=== PATIENT | male | born 1950 | race African-American/Black ===

== ENCOUNTER 2018-02-05 14:06 | Inpatient (IN) | payer OTHER ==
[~2018-02-05] VITALS: Ht 180.3 cm; Wt 63.6 kg
--- NOTE | ~2018-02-05 | HC ---
[facility] [place] [address] CONSULTATION Name: ARPITA PHILIPPE Room #: 362-P [facility]..#: [id number] Admission: 02/05/18 Attend Phys: Song Navas MD Discharge: 02/09/18 Date of : 50 Report #: [id number] THIS REPORT FOR: //name// CC: Pippa Navas DATE OF SERVICE: 02/09/2018 NEPHROLOGY CONSULTATION REASON FOR CONSULTATION: Chronic kidney disease. HISTORY OF PRESENT ILLNESS: The patient is well known to our service, followed in our office with CKD by Dr. Virginia Abdullahi. He has a fistula in the left upper arm, but has not required dialysis and that fistula has been in for at least a couple of years. His chronic baseline creatinine apparently runs between 3 and 4. He was admitted here after some falls, with a creatinine of 4.6 and has fallen to 3.1 over the course of several days of hospitalization. He fell and was found down, had some rhabdomyolysis, which is improving and his creatinine, as mentioned, improving as well. PAST MEDICAL HISTORY: The patient, as I mentioned, is well known to our service and we have seen him previously in the hospital here with CKD, most recently about 3 years ago, but he is followed regularly in our office. He does have polycystic kidneys, but it is unclear as to whether he has autosomal dominant polycystic kidney disease. He did have a sister who was on dialysis and probably that is the case; family history is remarkable for that. Past history also remarkable for previous CVA and hypertension. SOCIAL HISTORY: , lives by himself. MEDICATIONS: Home medications, as listed, include amlodipine 10 mg daily, aspirin 81 mg daily, B12 and Toprol-XL 50 mg daily. REVIEW OF SYSTEMS: GENERAL: He is sitting up in the rehab floor and feeling much better. In general, he has been feeling okay. EYES: His vision is reasonably good. ENT: Hearing okay and swallows okay. Denies mouth sores. ENDOCRINE: No diabetes or thyroid disease. RESPIRATORY: Denies shortness of breath, pleuritic pain or cough. CARDIAC: Denies chest pain, angina or palpitations. GASTROINTESTINAL: Denies nausea, vomiting, diarrhea or bloody stools. GENITOURINARY: Has a good urinary stream, without hematuria or history of renal stone. NEUROLOGIC: He has had a previous stroke and claims no residual. [address] [place] [address] CONSULTATION Name: ARPITA PHILIPPE Room #: 362-P [facility] IN [facility]#: [id number] Admission: 02/05/18 Attend Phys: Song Navas MD Discharge: 02/09/18 Date of : 50 Report #: [id number] PHYSICAL EXAMINATION: GENERAL: Chronically cachectic, ill-appearing gentleman, in no acute distress, giving some history. SKIN: Unremarkable. SKELETAL: Rather thin. Left upper arm fistula. HEENT: Extraocular movements are full. Vision intact. No scleral icterus. Hearing intact. Mucous membranes moist. Tongue, buccal mucosa benign. NECK: Supple. No carotid bruits. CHEST: Clear to auscultation. HEART: Regular. ABDOMEN: Soft, nontender. EXTREMITIES: No edema. LABORATORY DATA: Most recent hemoglobin 10.4. Sodium 142, potassium 3.8, chloride 112, bicarbonate 17, creatinine 3.1 and BUN 33. ASSESSMENT AND PLAN: 1. Chronic kidney disease. His creatinine is not terribly high as is his BUN, but I feel his muscle mass is probably rather well and his GFR is probably on the low side, as he did have a chronic creatinine greater than 4 at one time when there was more bulk to him. In any event, he has been kept off dialysis this long and seems to be doing pretty well. His renal function is relatively stable. He does have a bit of metabolic acidosis and that may need to be treated. I will review his office records when I get to the office. 2. Status post fall, with rhabdomyolysis, getting better. 3. History of hypertension, on medications. <ELECTRONICALLY SIGNED> By: Brian Keene MD 02/13/18 0959 1147 2352 Brian Keene MD /nt
--- NOTE | ~2018-02-05 | HC ---
[facility] [place] [address] CONSULTATION Name: ARPITA PHILIPPE Room #: 362-P ADM IN .R.#: [id number] Admission: 02/05/18 Attend Phys: Song Navas MD Discharge: Date of : 50 Report #: [id number] THIS REPORT FOR: //name// CC: Pippa Navas DATE OF SERVICE: 02/06/2018 CHIEF COMPLAINT: Multiple pressure ulcerations after prolonged downtime. HISTORY OF PRESENT ILLNESS: This is a 67-year-old black male patient who apparently was found down on the floor at home. He laid on the floor for possibly up to 4 days. He was found by family members, brought to the hospital. He has been fluid resuscitated and is feeling a little bit better, although offers very little information about himself. He complains of some soreness to his chest wall and is noted to have several areas of pressure injury to his face, chest, and knees. PAST MEDICAL PROBLEMS: Include altered mental status, acute renal failure, history of incarcerated hernia, rhabdomyolysis, weakness, and chronic kidney disease with possible history of dialysis. SOCIAL HISTORY: Negative for alcohol or tobacco use. MEDICATIONS: Include aspirin, atorvastatin, Topral XL, vitamin B12, amlodipine, Colace. ALLERGIES: No known drug allergies. FAMILY HISTORY: Noncontributory. REVIEW OF SYSTEMS: Essentially unobtainable due to either the patient's inability to answer questions or unwillingness to answer questions. PHYSICAL EXAMINATION: VITAL SIGNS: At this time include pulse 96, respiratory rate of 18, blood pressure 164/93, and temperature 98.1. GENERAL: This is a chronically ill-appearing male patient who appears to be somewhat cachectic, in no distress. HEENT: Head is normocephalic and atraumatic. Extraocular movements are intact. Nose is clear. There is an area of what appears to be superficial eschar to the right zygomatic arch region. There is no separation or anything open in this location. NECK: Supple. LUNGS: Clear. HEART: Regular rhythm. [facility] [address] [place] [address] CONSULTATION Name: ARPITA PHILIPPE Room #: 362-P [facility] IN .R.#: [id number] Admission: 02/05/18 Attend Phys: Song Navas MD Discharge: Date of : 50 Report #: [id number] CHEST: Chest wall is tender. SKIN: He has areas of eschar over his xiphoid process. The eschar is slightly raised at the edges, but does not appear to be infected. He has evidence of pressure injury to both knees. These areas seem to have recovered. There is no eschar and actually appears to be re-epithelialized. There is a small of eschar in his right first MTP region. CLINICAL IMPRESSION: 1. Unstageable pressure ulcers to the right zygomatic arch region, xiphoid process region, bilateral knees, right first MTP. 2. Mild rhabdomyolysis. 3. Acute mental status changes. 4. Chronic kidney disease. RECOMMENDATIONS: At this point in time, all eschared areas are stable and non-infected. At this point in time, I think it would be reasonable to use topical skin prep to these areas and to otherwise leave them open to air. The eschar should release and peel away as epithelialization occurs. The patient is agreeable to this plan as well. We will recommend aggressive nutritional support. We will recommend turning and repositioning as needed while he is in bed. Continue current medications. I appreciate being asked to see him in consultation. <ELECTRONICALLY SIGNED> By: Roberto Carlos Villaseñor MD 02/07/182152 35 37 Roberto Carlos Villaseñor MD /nt
--- NOTE | ~2018-02-05 | EKG ---
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1950 Requested By: Dada Cochran Order Number: [id number] MD: Juni Thomas Measurements Intervals [place] Rate: 98 P: 60 WA: 168 QRS: -55 QRSD: 135 T: -56 QT: 370 QTc: 473 Interpretive Statements Sinus rhythm Right bundle branch block Nonspecific ST and T wave abnormality Compared to ECG 02/16/2016 13:01:45 Nonspecific change in the ST and T-wave segments Electronically Signed On 02-06-2018 8:47:40 MEDICAL BILLING AND CODING INSTRUCTOR by Juni Thomas [email or web address] <ELECTRONICALLY SIGNED> By: Juni Thomas MD, [facility] 02/06/18 0847 1430 1430 Juni Thomas MD, [facility] /EPI
[~2018-02-05 14:06] MED LIST: AMLODIPINE BESY10 MG PO; ASPIR 8181 MG PO; BENZONATATE100 MG PO; CARDURA4 MG PO; COLACE100 MG PO; HYDROCODONE-AP1 EAC6 PO; LIPITOR 20 MG T20 M1 PO; LOPRESSOR50 MG PO; MIRALAX17 GM PO; PERCOCET 10-321 EACH PO; VITAMIN B-121000 MCG PO
[2018-02-05 14:07] VITALS: BP 161/63
[2018-02-05 15:46] LABS: HEMATOCRIT 40.4 % (42.0-52.0); HEMOGLOBIN 13.4 gm/dL (14.0-18.0); MCH 30.9 pg (26.0-34.0); MCHC 33.2 g/dL (28.0-37.0); MCV 92.9 fL (80.0-100.0); PLATELET COUNT 148 thou/uL (150-400); RBC 4.35 mil/uL (4.50-6.00); RDW 12.9 % (10.5-14.5)
[2018-02-05 15:55] LABS: CALCIUM 8.9 mg/dL (8.5-10.1); CREATININE 4.6 mg/dL (0.7-1.3)
[2018-02-05 16:47] LABS: ABSOLUTE NEUTROPHILS 3.7 thou/uL (1.4-8.2); ANISOCYTOSIS 1+
[2018-02-05 17:43] VITALS: BP 175/89
[2018-02-05 18:23] VITALS: BP 175/89
[2018-02-05 18:30] VITALS: BP 169/97
[2018-02-05] MEDS ORDERED: TOPROL XL50 MG PO (21:28)
[2018-02-05 23:37] VITALS: BP 137/75
[2018-02-06 04:00] VITALS: BP 163/72
[2018-02-06 05:14] LABS: URINE BILIRUBIN NEGATIVE (Negative); URINE BLOOD 3+ (Negative); URINE CLARITY CLEAR; URINE COLOR YELLOW; URINE GLUCOSE-RANDOM* NEGATIVE (Negative); URINE KETONES NEGATIVE (Negative); URINE LEUKOCYTES-REFLEX NEGATIVE (Negative); URINE NITRITE-REFLEX NEGATIVE (Negative); URINE PROTEIN (DIPSTICK) 2+ (Negative); URINE SPECIFIC GRAVITY 1.025 (1.005-1.035); URINE UROBILINOGEN 0.2 E.U./dl (0.2-1.0)
[2018-02-06 05:25] LABS: MUCUS 0-3 Light strn/LPF (None Seen); SQUAMOUS 0-3 Few /LPF (0-3)
[2018-02-06 05:26] LABS: CASTS None Seen /LPF (None Seen); URINE RBC 3-10 Few /HPF (0-2); URINE WBC-REFLEX None Seen /HPF (0-5)
[2018-02-06 05:27] LABS: BACTERIA-REFLEX None Seen /HPF (None Seen); CRYSTALS None Seen /LPF (None Seen)
[2018-02-06 06:34] LABS: HEMOGLOBIN 11.9 gm/dL (14.0-18.0); MCV 93.9 fL (80.0-100.0); RBC 3.84 mil/uL (4.50-6.00); RDW 13.2 % (10.5-14.5); WBC 6.1 thou/uL (4.0-11.0)
[2018-02-06 07:09] LABS: ALBUMIN 3.3 g/dL (3.4-5.0); CALCIUM 8.5 mg/dL (8.5-10.1); CREATININE 4.4 mg/dL (0.7-1.3); POTASSIUM 4.6 mmol/L (3.5-5.1); TOTAL BILIRUBIN 0.8 mg/dL (<0.1-1.0); TOTAL PROTEIN 7.3 g/dL (6.4-8.2)
[2018-02-06 08:07] VITALS: BP 164/93
[2018-02-06 11:53] VITALS: BP 155/87
[2018-02-06 20:00] VITALS: BP 136/69
[2018-02-07 04:00] VITALS: BP 138/57
[2018-02-07 06:27] LABS: ABSOLUTE NEUTROPHILS 3.3 thou/uL (1.4-8.2); BASOPHILS 0.7 % (0.0-2.0); EOSINOPHILS 0.2 % (0.0-3.0); HEMATOCRIT 30.8 % (42.0-52.0); MCH 30.4 pg (26.0-34.0); MCHC 32.5 g/dL (28.0-37.0); MCV 93.4 fL (80.0-100.0); MONOCYTES 10.2 % (1.0-8.0); PLATELET COUNT 109 thou/uL (150-400); POLYS 60.9 % (36.0-66.0); RDW 12.7 % (10.5-14.5); WBC 5.5 thou/uL (4.0-11.0)
[2018-02-07 06:40] LABS: CALCIUM 7.6 mg/dL (8.5-10.1); CREATININE 3.9 mg/dL (0.7-1.3); POTASSIUM 4.2 mmol/L (3.5-5.1)
[2018-02-07 08:19] VITALS: BP 127/70
[2018-02-07 11:49] VITALS: BP 133/70
[2018-02-07 16:36] VITALS: BP 128/72
[2018-02-07 20:20] VITALS: BP 126/60
[2018-02-08 04:45] VITALS: BP 128/70
[2018-02-08 06:51] LABS: CREATININE 3.6 mg/dL (0.7-1.3); POTASSIUM 4.2 mmol/L (3.5-5.1)
[2018-02-08 07:44] VITALS: BP 143/83
[2018-02-08 11:41] VITALS: BP 147/85
[2018-02-08 15:40] VITALS: BP 148/77
[2018-02-08 20:28] VITALS: BP 149/83
[2018-02-09 03:36] VITALS: BP 157/90
[2018-02-09 06:23] LABS: HEMATOCRIT 32.4 % (42.0-52.0); HEMOGLOBIN 10.4 gm/dL (14.0-18.0); MCH 29.8 pg (26.0-34.0); MCHC 32.1 g/dL (28.0-37.0); MCV 92.9 fL (80.0-100.0); RBC 3.49 mil/uL (4.50-6.00); RDW 13.2 % (10.5-14.5); WBC 4.4 thou/uL (4.0-11.0)
[2018-02-09 06:39] LABS: CALCIUM 7.9 mg/dL (8.5-10.1); CREATININE 3.2 mg/dL (0.7-1.3); MAGNESIUM 1.8 mg/dL (1.8-2.4); POTASSIUM 3.8 mmol/L (3.5-5.1)
[2018-02-09 07:37] VITALS: BP 148/88
[2018-02-09 12:18] VITALS: BP 138/79
[2018-02-09] MEDS ORDERED: ASPIR 8181 MG PO (12:49)
[2018-02-09] MEDS ORDERED: ADULT TUSS100 MG/5 M PO (12:49)
[2018-02-09] MEDS ORDERED: ACETAMINOPHEN325 M1 PO (12:49)
[2018-02-09 14:23] VITALS: BP 160/85
== END 2018-02-09 18:05 | DRG 564 ==
LOC: ER 14:06 → 3W 16:50 → EROBS 16:50 → 3W 18:06
PROVIDERS: Family Medicine; Internal Medicine; Nurse Practitioner Family; Physician Assistant
DX: T79.6XXA Traumatic ischemia of muscle, initial encounter (principal); N18.6 End stage renal disease; G92 Toxic encephalopathy; E44.0 Moderate protein-calorie malnutrition; Z68.1 Body mass index [BMI] 19.9 or less, adult; I12.0 Hypertensive chronic kidney disease with stage 5 chronic kidney disease or end stage renal disease; L89.810 Pressure ulcer of head, unstageable; L89.890 Pressure ulcer of other site, unstageable; Z60.2 Problems related to living alone; R29.6 Repeated falls; E53.8 Deficiency of other specified B group vitamins; L98.8 Other specified disorders of the skin and subcutaneous tissue; S20.319A Abrasion of unspecified front wall of thorax, initial encounter; S90.811A Abrasion, right foot, initial encounter; W18.39XA Other fall on same level, initial encounter; Y93.89 Activity, other specified; Y92.89 Other specified places as the place of occurrence of the external cause; Y99.8 Other external cause status; Z98.52 Vasectomy status; Z86.73 Personal history of transient ischemic attack (TIA), and cerebral infarction without residual deficits; Z79.899 Other long term (current) drug therapy; Z99.2 Dependence on renal dialysis
CPT/HCPCS: 10779; 10879

== ENCOUNTER 2018-02-09 09:05 | Inpatient (IN) | payer OTHER ==
[~2018-02-09] VITALS: Ht 180.3 cm; Wt 67.1 kg
--- NOTE | ~2018-02-09 | HC ---
[facility] [place] [address] CONSULTATION Name: ARPITA PHILIPPE Room #: 513-P ADM IN M.R.#: [id number] Admission: 02/09/18 Attend Phys: Angelo Khalil MD Discharge: Date of : 50 Report #: [id number] THIS REPORT FOR: //name// CC: Angelo Phillips DATE OF SERVICE: 02/11/2018 NEUROBEHAVIORAL STATUS EXAM: ATTENDING PHYSICIAN: Angelo Khalil MD. WILDLIFE REHABILITATOR: Elian Olguin, PhD. CLINICAL PRESENTATION: The patient is a 67-year-old male admitted to the [facility] Unit for comprehensive inpatient rehabilitation program. The patient was initially brought into the hospital following an incident in which he was found on the floor of his home face forward for approximately 3 days and was unable to stand. He was diagnosed with rhabdomyolysis and had an additional presentation that included his right eye swollen, multiple sores on his chest, knees and foot. The patient has been confused, and diagnosed with encephalopathy upon admission. His diagnosis on admission to the rehab unit includes acute metabolic encephalopathy, rhabdomyolysis, status post fall, multiple skin abrasions including chest wall, knees and foot, chronic kidney disease stage 5, history of CVA with left-sided weakness, protein-calorie malnutrition, folic acid deficiency, hypertension and a chronic cough. A complete description of his medical condition and history can be found in his medical record. Neuropsychological consultation was requested to provide assistance in the assessment of cognitive and emotional status and to provide recommendations and services. Prior to this recent medical event, he is reported to have been living independently in his own home. He is , but from his . The patient had 4 children. 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 TECHNIQUES UTILIZED: Clinical interview, review of medical records, staff consultation and behavioral observation, mini mental status exam 2 brief version and attempted contact with family (sister). EXAMINATION FINDINGS: The patient was interviewed while in his room. There is no report of auditory or visual hallucinations. However, the patient is confused. He was unaware of the reason for his hospitalization and was [facility] [address] [place] [address] CONSULTATION Name: ARPITA PHILIPPE Room #: 513-P ADM IN [facility].#: [id number] Admission: 02/09/18 Attend Phys: Angelo Khalil MD Discharge: Date of : 50 Report #: [id number] coughing frequently during the assessment. Verbal associations were tangential during the interview. He indicates appetite is poor. However, he is an unreliable historian in regard to presenting symptoms. His performance on the brief version of the MMSE 2 was 12/16, one which is extremely low. Moderate impairment in cognition is suggested by performance on the MMSE 2. The patient is alert and oriented; however, his level of alterness is variable. Impaired recall is noted along with poor insight into his symptoms and his limitations. It will be important to have increased contact with family to clarify recent history and functional levels of functioning prior to his hospitalization. DIAGNOSTIC IMPRESSION: Delirium, hypoactive, acute. Neurocognitive disorder -- extent to be determined, unspecified, with decreased insight and poor judgment. Unspecified anxiety disorder. RECOMMENDATIONS: Continued contact with family will be necessary to clarify his pre-morbid functioning regarding mood and behavior and cognitive deficits. At this time, 24-hour care is suggested with assistance in the management of medication, nutrition and finances. A structured schedule with an explanation during therapies regarding the purpose of his hospitalization. Redirection and distraction along with orientation will also help if patient becomes agitated. Thank you very much for allowing me to provide the consultation on this patient. <ELECTRONICALLY SIGNED> By: Elian Olguin, PhD 02/20/18 0714 1301 2125 Elian Olguin, PhD /nt
--- NOTE | ~2018-02-09 | P ---
[facility] [place] [address] PROCEDURE REPORT Name: ARPITA PHILIPPE Room #: 513-P ADM IN M.R.#: [id number] Admission: 02/09/18 Attend Phys: Angelo Khalil MD Discharge: Date of : 50 Report #: [id number] THIS REPORT FOR: //name// CC: Angelo Andersen DATE OF SERVICE: 02/15/2018 PROCEDURE: EGD with esophageal dilatation. He is a patient of Dr. Romel Phillips and Dr. Angelo Khalil. INDICATIONS FOR PROCEDURE: This patient has had dysphagia. He has symptomatic problems with his swallowing. EGD is being performed to try to evaluate the esophagus more thoroughly and possibly dilated, so that the swallowing will be easier for him. DESCRIPTION OF PROCEDURE: Informed consent for this procedure was obtained prior to the administration of any medication. The risks of the procedure, which include bleeding, perforation, infection, complications of sedation and the possibility I could miss something have been explained to the patient and he has indicated his consent by signing. Propofol was slowly titrated before and during this procedure for patient comfort by the Anesthesia service. The Olympus upper videoscope was introduced through the upper esophageal sphincter and advanced under direct visualization to the third portion of the duodenum. Findings are noted on withdrawal of the scope. There is bile throughout the duodenum. The third portion of the duodenum that was visualized appears normal. Second portion is normal in appearance and the duodenal bulb appears normal. In the pylorus, there is some mild erythema. In the prepyloric area, a few nonbleeding minor erosions. The rest of the antrum appears normal. Body, normal mucosa. Cardia and fundus, normal mucosa. Retroflex view did not reveal any hiatal hernia. The scope was withdrawn into the esophagus. The Z-line patient is appropriately located at the top of the gastric folds and appears normal. The esophageal mucosa appears normal throughout its entirety. It does feel like there is a narrowing of the proximal esophagus with regard to the way the scope travels through this area, but I could not see anything obvious. The scope was advanced down into the stomach. Again, a guidewire was advanced through the scope. The scope was withdrawn over the guidewire. Then, a #51-Icelandic Savary dilator was passed over the guidewire without difficulty. The guidewire and the dilator were removed. Then, the Olympus upper videoscope was reintroduced through the upper esophageal sphincter and advanced under direct visualization to the pylorus. Findings are noted on withdrawal of the scope. There were no changes in the stomach after [facility] [address] [place] [address] PROCEDURE REPORT Name: ARPITA PHILIPPE Room #: 513-P [facility] IN ..#: [id number] Admission: 02/09/18 Attend Phys: Angelo Khalil MD Discharge: Date of : 50 Report #: [id number] the dilatation. The scope was withdrawn to the esophagus. The distal esophagus appears normal. The esophageal mucosa appears normal and unchanged throughout its entirety up to the very proximal esophagus where there is a tiny bit of blood present. It may be that there was some dilatation of the proximal esophagus. In the process of passing this dilator through the esophagus. Hopefully, it will be helpful for his dysphagia. Good hemostasis is noted. The scope was withdrawn. The patient went to the recovery area in stable condition. He tolerated the procedure well. IMPRESSION: 1. Suspect tight upper esophagus that was dilated with a 51-Icelandic Savary over a guidewire. 2. Prepyloric erosions. RECOMMENDATIONS: For him to continue on PPIs or H2 receptor antagonist for the erosions that were seen in his stomach and advance his diet as recommended by speech therapy. Thank you very much once again for allowing me to participate in his care, Dr. Phillips and Dr. Khalil. <ELECTRONICALLY SIGNED> By: Cherise Rodriguez DO 02/15/18 1410 1331 1401 Cherise Rodriguez DO /nt
--- NOTE | ~2018-02-09 | PLAN ---
[facility] [place] [address] REHAB UNIT PLAN OF CARE Name: ARPITA PHILIPPE Room #: 513-P ADM IN M.R.#: [id number] Admission: 02/09/18 Attend Phys: Angelo Khalil MD Discharge: Date of : 50 Report #: [id number] THIS REPORT FOR: //name// CC: Angelo Phillips DATE OF SERVICE: 02/10/2018 PROGRESS NOTE/OVERALL PLAN OF CARE SUBJECTIVE: The patient was seen earlier today. Last recorded temperature 36.8, pulse 91, respirations 18, blood pressure 192/88. He has had some Haldol that has been ordered. He does not like the thickened liquids. He has been working in therapies with transfers, mod assist, gait, mod assist 75 feet front-wheeled walker. In occupational therapy, lower body dressing is dependent. In speech therapy, he has moderate comprehensive deficits. He has severe cognitive deficits, memory is also severe. ASSESSMENT: 1. Metabolic encephalopathy. 2. Rhabdomyolysis, status post fall. 3. Multiple skin abrasions, chest wall, knees, foot. 4. Chronic kidney disease stage 5. 5. History of cerebrovascular accident with left-sided weakness in the remote past. 6. Protein calorie malnutrition. 7. Folic acid deficiency. 8. Hypertension. 9. Chronic cough. PLAN: The overall plan of care is based on the preadmission screen, post-admission physician evaluation and information garnered from therapy assessments. 1. Estimated length of stay is at least 2-3 weeks and potentially longer. 2. Medical prognosis is reasonably good. 3. Anticipated interventions includes the interdisciplinary acute inpatient rehabilitation program. 4. Anticipated functional outcomes would be for him to hopefully become modified independent at a walker level with improved independent in ADLs and cognition as well as swallowing as he is on thickened liquid diet. 5. Discharge destination would be back home, but he is going to need a lot more assistance. There is a son involved as well as his sister. We will need to see how he progresses during his rehabilitation. 6. Expected therapy by discipline includes PT, OT and speech 1 hour per day [place] [id number] REHAB UNIT PLAN OF CARE Name: ARPITA PHILIPPE Room #: 513-P [facility] IN [facility]#: [id number] Admission: 02/09/18 Attend Phys: Angelo Khalil MD Discharge: Date of : 50 Report #: [id number] each five days a week throughout the duration of the acute inpatient rehabilitation stay. <ELECTRONICALLY SIGNED> By: Angelo Khalil MD 02/22/18 1454 1736 0435 Angelo Khalil MD /PMT
--- NOTE | ~2018-02-09 | H ---
[facility] [place] [address] HISTORY AND PHYSICAL Name: ARPITA PHILIPPE Room #: 513-P ADM IN M.R.#: [id number] Admission: 02/09/18 Attend Phys: Angelo Khalil MD Discharge: Date of : 50 Report #: [id number] THIS REPORT FOR: //name// CC: Angelo Phillips DATE OF SERVICE: 02/09/2018 POSTADMISSION PHYSICIAN EVALUATION HISTORY OF PRESENT ILLNESS: Please see the full admission history and physical dictated by Sybil Stone, nurse practitioner. The patient is a 67-year-old -[place] male originally admitted to [facility] after being found down in his home by his son. He had apparently been on the ground face for 3 days, unable to get up. He had a markedly elevated CPK diagnosed with rhabdomyolysis and encephalopathy, acute renal insufficiency. Creatinine was noted to be at 4.6 on admission, originally. He has gradually improved, but he still is quite tangential, has decreased insight into his deficits and has had a significant functional decline from his premorbid status. He has been admitted now for acute in-hospital inpatient rehabilitation. Past medical history, past surgical history, habits, code status, and allergies: Please see the above. SOCIAL HISTORY: As noted. He lives alone in a house, 4 steps in, used a cane. He has a son that checks in on him and there is a sister that is here currently visiting. MEDICATIONS: Please see the full medication listing. This includes vitamins, herbals, and supplements. REVIEW OF SYSTEMS: No current complaints of chest pain, shortness of breath or abdominal discomfort. PHYSICAL EXAMINATION: GENERAL: He is a pleasant, slender -[place]cu[place] male in no obvious distress.: Please see the vitals as listed. He appeared fixated with some issues with his home and his sister will be asking his son to try to assist with going out to the house to check on a few things in this regard. He is otherwise oriented to person. He knows he is here in the hospital. Seems to be easily distractable. He will follow basic 1 step commands. HEENT: Otherwise appeared benign. CHEST: Sounded clear to auscultation. CARDIOVASCULAR: Regular rate and rhythm. ABDOMEN: Bowel sounds positive, nontender. GENITOURINARY AND RECTAL: Deferred. [address] [address] HISTORY AND PHYSICAL Name: ARPITA PHILIPPE Room #: 513-P ADM IN .R.#: [id number] Admission: 02/09/18 Attend Phys: Angelo Khalil MD Discharge: Date of : 50 Report #: [id number] NEUROLOGIC: Functional range of motion of both upper extremities and lower extremities. Upper extremity strength is probably a grade 3-3-/5. Lower extremities is grade 3 to 3+. He is mod assist with transfers and will ambulate 120 feet with a front-wheeled walker, min assist. He does have some open wounds that are noted above. ASSESSMENT: 1. Acute metabolic encephalopathy. 2. Rhabdomyolysis, status post fall. 3. Multiple skin abrasions including chest wall, knees, and foot. 4. Chronic kidney disease stage 5. He did have initial significant acute renal insufficiency. 5. History of cerebrovascular accident with left-sided weakness in the remote past. 6. Protein-calorie malnutrition. 7. Folic acid deficiency. 8. Hypertension. 9. Chronic cough. PLAN: From a post-admission physician evaluation, there are no relevant changes since the preadmission screening. Please see the above review of prior and current medical and functional conditions and comorbidities. The patient has been admitted for an acute in-hospital inpatient rehabilitation stay. As far as risk of complications, he has multiple medical comorbidities as noted above. Initial plan of care involves the interdisciplinary acute inpatient rehabilitation program with goal of maximizing his functional independence, so that he can hopefully return back to his prior living situation. Measurable functional goals would be for him to improve as far as mobility and ADLs, the walker level as well as improvement in cognition. Prognosis is reasonably good with estimated length of stay probably at least 2-3 weeks and potentially longer if needed. Potential barriers would include the patient's multiple medical comorbidities and decreased functional status. The patient meets diagnostic criteria for an acute in-hospital inpatient rehabilitation stay. He meets the medical necessity criteria and we will have the consultant electronics physicians continue to follow. He does have the tolerance for therapies and has appropriate discharge goals back to the home setting. <ELECTRONICALLY SIGNED> By: Angelo Khalil MD 02/16/18 1031 1935 2235 Angelo Khalil MD /nt
--- NOTE | ~2018-02-09 | H ---
[facility] [place] [address] HISTORY AND PHYSICAL Name: ARPITA PHILIPPE Room #: PRE [facility]#: [id number] Admission: Attend Phys: Angelo Khalil MD Discharge: Date of : 50 Report #: [id number] THIS REPORT FOR: //name// CC: Angelo Phillips DATE OF SERVICE: 02/09/2018 HISTORY OF PRESENT ILLNESS: This is a 67-year-old -Latvian male who presented to the hospital after he was found down in his home by his son. He was apparently on the ground face forward for 3 days and unable to get up. He had an elevated CPK in the ER, was diagnosed with rhabdomyolysis. He had generalized all over body soreness. He also had right eye swelling, multiple sores on his chest, knees and foot. He has been more confused and was diagnosed with encephalopathy. The patient is now being admitted to acute inpatient rehabilitation for physical, occupational and speech therapies. Today, the patient voices no complaints to me. He denies cough, shortness of air, chest pain. He denies dizziness or headache. He denies blurred vision. He denies nausea, abdominal pain or constipation. He denies dysuria, as noted though, the patient is a poor historian and very confused. PAST MEDICAL HISTORY: Hypertension, chronic kidney disease. He does have a left AV fistula, but he is not on dialysis at this time. It is unclear when his last dialysis was. History of stroke with left-sided weakness, chronic cough. PAST SURGICAL HISTORY: Hernia repair, tonsillectomy and vasectomy. HABITS: He quit smoking tobacco over 1 year ago. Denies illicit drug use. Denies alcohol use. CODE STATUS: Full code. SOCIAL HISTORY: The patient lives alone in a house. There are approximately 4 stairs to enter the home and then all living on one level. He had used a cane, single point, in the home. He was independent with his ADLs and IADLs prior. He does have a son who checks in on him. ALLERGIES: No known drug allergies. CURRENT MEDICATIONS: Magnesium 10 mL by mouth daily, bisacodyl suppository at bedtime rectally. Senna 8.6 mg daily. Colace 100 mg twice a day p.r.n., Mucinex 400 mg q.4 hours p.r.n., aspirin 81 mg daily, vitamin B12 of 2000 mcg daily, metoprolol 50 mg at bedtime, Norvasc 10 mg at bedtime, Tylenol 650 mg q.4 hours p.r.n. and NS IV infusion. REVIEW OF SYSTEMS: Remainder of his 14-point review of systems is negative [address] [address] HISTORY AND PHYSICAL Name: ARPITA PHILIPPE Room #: PRE IN ..#: [id number] Admission: Attend Phys: Angelo Khalil MD Discharge: Date of : 50 Report #: [id number] except as listed in HPI. PHYSICAL EXAMINATION: VITAL SIGNS: 148/88, respirations 20, pulse of 79, temperature 97.5. He is 94% oxygen on room air. GENERAL: He is awake, he is alert. He is oriented to person. He does know he is in the hospital. He is otherwise very confused as to why he is here, easily distracted. He is calm and cooperative, very poor historian and reliable. HEENT: Head is normocephalic. Eyes: EOMs are intact. ENT: No sinus tenderness. No pharyngitis. CHEST: Lungs clear to auscultation bilaterally. No crackles, no wheeze, some diminishment in the bases. CARDIAC: S1, S2 regular rate and rhythm. He does have a quarter size pressure wounds to his xiphoid process. ABDOMEN: Bowel sounds are positive, soft, nontender, very thin. GENITOURINARY: No CVA tenderness. He did report some noted hematuria in the urinal. EXTREMITIES: Functional range of motion of bilateral upper and lower extremities. 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 Upper extremity strength is grossly 3-/5. Able to lift the lower extremities antigravity, but not hold. He has negative Homans sign. He is transferring with mod assist. He ambulated 120 feet with a front wheel walker, min assist, require step by step verbal cues, max assist for lower body dressing, mod assist for bathing. SKIN: Wound to right foot, bilateral knees, anterior chest wall, all are open to air. NEUROLOGIC: The patient is calm, cooperative and pleasant. He is impulsive at times. Speech can be unintelligible at times. Facies are equal and symmetrical. LABORATORY DATA: From 02/09/2018, shows a sodium of 142, potassium 3.8, BUN 39, creatinine 3.2, magnesium 1.8. WBCs 4.4, hemoglobin 10.4, hematocrit 32.4, platelets 142. Prealbumin on 02/08 was 12.5. Folic acid 5.4. CPK 1130. ASSESSMENT: 1. Acute metabolic encephalopathy. 2. Rhabdomyolysis, status post fall. 3. Multiple skin abrasions including chest wall, knees and foot. 4. Chronic kidney disease stage 5. 5. History of cerebrovascular accident with left-sided weakness. 6. Protein calorie malnutrition. 7. Folic acid deficiency. 8. Hypertension. 9. Chronic cough. [facility] [place] [address] [place] [address] HISTORY AND PHYSICAL Name: JOSE MARTINARPITA Cueva Room #: PRE IN [facility]#: [id number] Admission: Attend Phys: Angelo Khalil MD Discharge: Date of : 50 Report #: [id number] PLAN: The patient has been admitted to acute inpatient rehabilitation unit for physical, occupational and speech therapies. He will be on a modified diet with nectar thick liquids, mechanically altered, renal. He will have dietitian follow for supplements. We will have Wound Care, follow along with Dr. Kidd for geriatric concerns. He will have hospitalist services managing acute medical issues. He will have a team conference next Monday, please see extensive orders. By: 1130 1230 ALAN Israel /mac
--- NOTE | ~2018-02-09 | HC ---
[facility] [place] [address] [address] CONSULTATION Name: ARPITA PHILIPPE Room #: 513-P ADM IN M.R.#: [id number] Admission: 02/09/18 Attend Phys: Angelo Khalil MD Discharge: Date of : 50 Report #: [id number] THIS REPORT FOR: //name// CC: Angelo Phillips DATE OF SERVICE: 02/14/2018 IDENTIFYING INFORMATION: This is a 67-year-old -Lib[place] male. HISTORY OF PRESENT ILLNESS: This patient was brought here by his son after he was found down in his residence. There was concern about rhabdomyolysis and head trauma. The CT of the brain seemed to show mostly chronic changes only, but this included atrophy as well as small vessel disease. There is also past infarcts. The patient also has longstanding renal insufficiency with a creatinine that was up around 4.6 in the past, but he has not had dialysis. Currently the creatinine has been running around 3.1. PAST PSYCHIATRIC HISTORY: Unable to obtain from the patient. PAST MEDICAL HISTORY: Recent fall with rhabdomyolysis, chronic kidney disease and hypertension. SOCIAL HISTORY: I believe, he lives with his . She is currently not living there; however. He has supportive family. MENTAL STATUS EXAM: -Libyan male, casually dressed, forgetful and confused, sparse speech and blunted affect. No suicidal ideation, no homicidal ideation, no hallucinations and no delusions. Insight and judgment impaired. MEDICATIONS: Current regimen of medicines include Zyprexa p.r.n., folic acid 1 mg daily, Protonix 20 daily, amlodipine 10 daily, aspirin 81 daily, metoprolol 50 at bedtime and melatonin 10 mg at bedtime. DIAGNOSIS: Delirium/encephalopathy, rule out dementia versus cognitive disorder, not otherwise specified. RECOMMENDATIONS: From what I understand the patient is working through with physical therapy. There is likely an underlying cognitive disorder at least if not dementia based upon his brain scan, but more detailed collateral from family perhaps could clarify this by noting degree of forgetfulness, confusion and impairment in various tasks over the last 3-12 months. I believe we can certainly start some medicines for dementia at this time including a cholinesterase inhibitor as well as an NMDA antagonist such as Namenda. Of course with his renal insufficiency, our titration of Namenda will be somewhat limited certainly no more than 5 twice a day. If the patient and the patient's [facility] [address] [place] [address] CONSULTATION Name: ARPITA PHILIPPE Room #: 513-P [facility]#: [id number] Admission: 02/09/18 Attend Phys: Angelo Khalil MD Discharge: Date of : 50 Report #: [id number] family are deciding to get dialysis, this would take uremia and some other metabolic concerns out of the equation. By: [id number] Josh Gomez MD /nt
[~2018-02-09 09:05] MED LIST changes: +TOPROL XL50 MG PO
[2018-02-09] MEDS ORDERED: ASPIR 8181 MG PO (12:49)
[2018-02-09] MEDS ORDERED: ACETAMINOPHEN325 M1 PO (12:49)
[2018-02-09] MEDS ORDERED: ADULT TUSS100 MG/5 M PO (12:49)
[2018-02-09 19:48] VITALS: BP 173/80
[2018-02-10 05:59] LABS: HEMATOCRIT 30.4 % (42.0-52.0); HEMOGLOBIN 10.4 gm/dL (14.0-18.0); MCHC 34.1 g/dL (28.0-37.0); MCV 90.9 fL (80.0-100.0); RBC 3.34 mil/uL (4.50-6.00); RDW 12.9 % (10.5-14.5); WBC 4.2 thou/uL (4.0-11.0)
[2018-02-10 06:20] LABS: CALCIUM 7.9 mg/dL (8.5-10.1); CREATININE 3.1 mg/dL (0.7-1.3); POTASSIUM 3.8 mmol/L (3.5-5.1)
[2018-02-10 08:03] VITALS: BP 192/88
[2018-02-10 19:34] VITALS: BP 166/91
[2018-02-11 07:52] VITALS: BP 145/71
[2018-02-11 19:30] VITALS: BP 146/84
[2018-02-12 08:03] VITALS: BP 142/59
[2018-02-12 20:54] VITALS: BP 149/75
[2018-02-13 09:25] VITALS: BP 132/71
[2018-02-13 20:00] VITALS: BP 168/71
[2018-02-14 07:14] VITALS: BP 160/86
[2018-02-14 13:41] LABS: URINE BILIRUBIN NEGATIVE (Negative); URINE BLOOD 2+ (Negative); URINE CLARITY CLEAR; URINE COLOR YELLOW; URINE GLUCOSE-RANDOM* NEGATIVE (Negative); URINE KETONES NEGATIVE (Negative); URINE LEUKOCYTES-REFLEX NEGATIVE (Negative); URINE NITRITE-REFLEX NEGATIVE (Negative); URINE PROTEIN (DIPSTICK) 3+ (Negative); URINE SPECIFIC GRAVITY >= 1.030 (1.005-1.035); URINE UROBILINOGEN 0.2 E.U./dl (0.2-1.0)
[2018-02-14 13:54] LABS: SQUAMOUS 0-3 Few /LPF (0-3)
[2018-02-14 13:55] LABS: BACTERIA-REFLEX 1-9 Few /HPF (None Seen); CASTS None Seen /LPF (None Seen); CRYSTALS None Seen /LPF (None Seen); URINE RBC 0-2 Rare /HPF (0-2); URINE WBC-REFLEX 0-5 Rare /HPF (0-5)
[2018-02-15 05:53] LABS: HEMATOCRIT 27.5 % (42.0-52.0); HEMOGLOBIN 9.1 gm/dL (14.0-18.0); MCH 30.5 pg (26.0-34.0); MCV 92.4 fL (80.0-100.0); PLATELET COUNT 275 thou/uL (150-400); RBC 2.97 mil/uL (4.50-6.00); RDW 13.4 % (10.5-14.5); WBC 5.1 thou/uL (4.0-11.0)
[2018-02-15 06:08] LABS: ALBUMIN 2.5 g/dL (3.4-5.0); CALCIUM 8.5 mg/dL (8.5-10.1); MAGNESIUM 2.3 mg/dL (1.8-2.4); PHOSPHORUS 4.3 mg/dL (2.5-4.9); POTASSIUM 4.5 mmol/L (3.5-5.1)
[2018-02-15 08:09] LABS: PLATELET ESTIMATE NORMAL
[2018-02-15 08:26] VITALS: BP 139/63
[2018-02-15 20:04] VITALS: BP 159/90
[2018-02-16 06:10] LABS: HEMATOCRIT 30.4 % (42.0-52.0); HEMOGLOBIN 9.9 gm/dL (14.0-18.0); MCH 30.3 pg (26.0-34.0); MCHC 32.6 g/dL (28.0-37.0); MCV 92.8 fL (80.0-100.0); RBC 3.28 mil/uL (4.50-6.00); RDW 13.1 % (10.5-14.5); WBC 7.7 thou/uL (4.0-11.0)
[2018-02-16 06:18] LABS: CALCIUM 8.6 mg/dL (8.5-10.1); CREATININE 5.2 mg/dL (0.7-1.3); POTASSIUM 4.3 mmol/L (3.5-5.1)
[2018-02-16 07:55] VITALS: BP 123/77
[2018-02-16 20:21] VITALS: BP 158/85
[2018-02-17 06:14] LABS: ALBUMIN 2.7 g/dL (3.4-5.0); CALCIUM 8.1 mg/dL (8.5-10.1); CREATININE 5.2 mg/dL (0.7-1.3); PHOSPHORUS 3.2 mg/dL (2.5-4.9); POTASSIUM 4.2 mmol/L (3.5-5.1)
[2018-02-17 08:00] VITALS: BP 138/59
[2018-02-17 19:43] VITALS: BP 137/66
[2018-02-18 07:09] LABS: ALBUMIN 2.4 g/dL (3.4-5.0); CALCIUM 8.1 mg/dL (8.5-10.1); CREATININE 4.9 mg/dL (0.7-1.3); PHOSPHORUS 3.5 mg/dL (2.5-4.9); POTASSIUM 3.8 mmol/L (3.5-5.1)
[2018-02-18 08:30] VITALS: BP 133/79
[2018-02-18 20:25] VITALS: BP 142/64
[2018-02-19 07:10] LABS: HEMATOCRIT 26.2 % (42.0-52.0); HEMOGLOBIN 8.7 gm/dL (14.0-18.0); MCH 30.6 pg (26.0-34.0); MCHC 33.2 g/dL (28.0-37.0); MCV 92.3 fL (80.0-100.0); RBC 2.84 mil/uL (4.50-6.00); RDW 13.7 % (10.5-14.5); WBC 5.4 thou/uL (4.0-11.0)
[2018-02-19 07:19] VITALS: BP 133/59
[2018-02-19 07:24] LABS: ALBUMIN 2.2 g/dL (3.4-5.0); CALCIUM 7.8 mg/dL (8.5-10.1); CREATININE 4.9 mg/dL (0.7-1.3); PHOSPHORUS 3.5 mg/dL (2.5-4.9); POTASSIUM 4.1 mmol/L (3.5-5.1)
[2018-02-19 19:25] VITALS: BP 139/78
[2018-02-20 08:22] VITALS: BP 146/65
[2018-02-20 19:45] VITALS: BP 145/81
[2018-02-21 05:27] LABS: ALBUMIN 2.5 g/dL (3.4-5.0); CALCIUM 8.1 mg/dL (8.5-10.1); PHOSPHORUS 4.1 mg/dL (2.5-4.9)
[2018-02-21 05:31] LABS: POTASSIUM 5.2 mmol/L (3.5-5.1)
[2018-02-21 07:40] VITALS: BP 136/69
[2018-02-21 19:37] VITALS: BP 139/71
[2018-02-22 16:12] VITALS: BP 139/71
[2018-02-22 20:30] VITALS: BP 134/67
[2018-02-23 06:01] LABS: ABSOLUTE NEUTROPHILS 2.1 thou/uL (1.4-8.2); BASOPHILS 1.4 % (0.0-2.0); EOSINOPHILS 5.9 % (0.0-3.0); HEMATOCRIT 31.3 % (42.0-52.0); HEMOGLOBIN 10.4 gm/dL (14.0-18.0); LYMPHOCYTES 37.5 % (24.0-44.0); MCH 31.2 pg (26.0-34.0); MCHC 33.3 g/dL (28.0-37.0); MCV 93.8 fL (80.0-100.0); MONOCYTES 11.1 % (1.0-8.0); PLATELET COUNT 289 thou/uL (150-400); POLYS 44.1 % (36.0-66.0); RBC 3.34 mil/uL (4.50-6.00); RDW 13.9 % (10.5-14.5); WBC 4.8 thou/uL (4.0-11.0)
[2018-02-23 06:13] LABS: ALBUMIN 2.6 g/dL (3.4-5.0); CALCIUM 8.1 mg/dL (8.5-10.1); MAGNESIUM 2.4 mg/dL (1.8-2.4); PHOSPHORUS 4.1 mg/dL (2.5-4.9); POTASSIUM 4.1 mmol/L (3.5-5.1)
[2018-02-23] MEDS ORDERED: PROCRIT20000 UNIT SUBQ (07:53)
[2018-02-23] MEDS ORDERED: PROTONIX 20 MG20 M1 PO (07:53)
[2018-02-23] MEDS ORDERED: TOPROL XL50 MG PO (07:53)
[2018-02-23] MEDS ORDERED: COLACE100 MG PO (07:53)
[2018-02-23] MEDS ORDERED: VOLTAREN GEL 1100 G2 TOP (07:53)
[2018-02-23] MEDS ORDERED: MELATONIN5 M1 PO (07:53)
[2018-02-23] MEDS ORDERED: RIVASTIGMINE1 EACH TRANSDERM (07:53)
[2018-02-23] MEDS ORDERED: AMLODIPINE BESY10 MG PO (07:53)
[2018-02-23] MEDS ORDERED: NAMENDA 5 MG TAB5 M1 PO (07:53)
[2018-02-23 08:25] VITALS: BP 130/80
[2018-02-23 08:51] VITALS: BP 130/80
== END 2018-02-23 15:26 | disposition home health service (06) | DRG 91 ==
LOC: ENTRNSPT 02-23 15:13 → EDTRNSPTSTS 02-23 15:15
PROVIDERS: Hospitalist; Internal Medicine Nephrology; Nurse Practitioner; Nurse Practitioner Family
PROC: 0D718ZZ Dilation of Upper Esophagus, Via Natural or Artificial Opening Endoscopic (ICD-10-PCS; principal; 2018-02-15)
DX: G92 Toxic encephalopathy (principal); N18.6 End stage renal disease; M62.82 Rhabdomyolysis; I12.0 Hypertensive chronic kidney disease with stage 5 chronic kidney disease or end stage renal disease; E44.0 Moderate protein-calorie malnutrition; N17.9 Acute kidney failure, unspecified; I69.354 Hemiplegia and hemiparesis following cerebral infarction affecting left non-dominant side; S20.312A Abrasion of left front wall of thorax, initial encounter; S20.311A Abrasion of right front wall of thorax, initial encounter; S80.212A Abrasion, left knee, initial encounter; S80.211A Abrasion, right knee, initial encounter; S90.812A Abrasion, left foot, initial encounter; S90.811A Abrasion, right foot, initial encounter; E53.8 Deficiency of other specified B group vitamins; F41.9 Anxiety disorder, unspecified; Z60.2 Problems related to living alone; W18.39XA Other fall on same level, initial encounter; K25.9 Gastric ulcer, unspecified as acute or chronic, without hemorrhage or perforation; R13.10 Dysphagia, unspecified; D69.6 Thrombocytopenia, unspecified; R29.6 Repeated falls; L89.890 Pressure ulcer of other site, unstageable; L89.510 Pressure ulcer of right ankle, unstageable; K22.2 Esophageal obstruction; Z53.29 Procedure and treatment not carried out because of patient's decision for other reasons; F03.90 Unspecified dementia, unspecified severity, without behavioral disturbance, psychotic disturbance, mood disturbance, and anxiety; E87.5 Hyperkalemia; Y93.89 Activity, other specified; Y92.89 Other specified places as the place of occurrence of the external cause; Y99.8 Other external cause status; Z98.52 Vasectomy status; Z87.891 Personal history of nicotine dependence; Z79.899 Other long term (current) drug therapy; Z68.20 Body mass index [BMI] 20.0-20.9, adult
CPT/HCPCS: 10112; 62110; 62900; 70005